=== PATIENT | female | born 1950 | race Hispanic/Latino ===

== ENCOUNTER 2018-07-30 05:44 | Observation (INO) | payer OTHER, MEDICARE ==
[2018-07-29 15:27] VITALS: BP 145/62
[2018-07-29 15:46] LABS: APPEARANCE,URINE Clear (CLEAR); BILIRUBIN,URINE Negative (NEGATIVE); COLOR,URINE Yellow (YELLOW); GLUCOSE, URINE (UA) Negative (NEGATIVE); KETONES,URINE Negative (NEGATIVE); LEUKOCYTE ESTERASE ,URINE Negative (NEGATIVE); NITRATE,URINE Negative (NEGATIVE); OCCULT BLOOD,URINE Negative (NEGATIVE); PROTEIN,URINE Negative (NEGATIVE)
[2018-07-29 15:59] LABS: INR 1.09 (0.85-1.15); PARTIAL THROMBOPLASTIN TIME 26.4 SEC (26.3-35.5); PROTHROMBIN TIME 11.4 SEC (9.6-11.6)
[2018-07-30] VITALS (23 sets, daily range): BP systolic 118–171; BP diastolic 66–87
[~2018-07-30] VITALS: Ht 170.2 cm; Wt 90.7 kg
[~2018-07-30 05:44] MED LIST: BUSP15TA3 PO; CARV6.25 PO; DULO60CA63 PO; GABA-531 PO; HYDR25TA PO; IBUP-2077 PO; INSU100I13 SQ; INSU100I21 SQ; LEVO125T11 PO; LOSA50TA25 PO; METF-446 PO; MONT10TA21 PO; PRAV80TA21 PO
[2018-07-30] MEDS ORDERED: PROPOFOL 10 MG/ML 20ML VIAL IV ONE (07:35)
[2018-07-30] MEDS ORDERED: LIDOCAINE PF 2% 5ML ABBOJECT ONE (07:35)
[2018-07-30] MEDS ORDERED: FENTANYL CITRATE PF 50 MCG/1 ML 2ML VIAL ONE (07:36)
[2018-07-30] MEDS ORDERED: MIDAZOLAM HCL 1 MG/ML 2ML VIAL ONE (07:36)
[2018-07-30] MEDS ORDERED: ROPIVACAINE 0.5% 5MG/ML 30ML IJ ONE (07:37)
[2018-07-30] MEDS ORDERED: SODIUM CHLORIDE 0.9% 1000ML 1,000 ML IV ONE (07:42)
[2018-07-30] MEDS ORDERED: DEXAMETHASONE SOD PHOSPHATE 10MG/ML 1ML VIAL ONE (07:45)
[2018-07-30] MEDS ORDERED: ONDANSETRON HCL 4 MG/2 ML VIAL ONE (07:45)
[2018-07-30] MEDS ORDERED: KETAMINE HCL 100 MG/ML 5ML VIAL IJ ONE (07:54)
[2018-07-30] MEDS ORDERED: HYDROMORPHONE 1 MG/1 ML AMP ONE ×2 (07:56→12:05)
[2018-07-30] MEDS ORDERED: CELE-84 PO (07:57)
[2018-07-30] MEDS: CEFAZOLIN SODIUM 1 GM VIAL IVP ONE ×2 (07:58→08:45)
[2018-07-30] MEDS ORDERED: BUPIVACAINE/EPI/PF 0.5% 30ML VIAL IJ ONE (08:49)
[2018-07-30] MEDS: TRANEXAMIC ACID 1000MG/10ML IV ONE ×2 (08:50→11:15)
[2018-07-30] MEDS ORDERED: GLYCOPYRROLATE 1 MG/5 ML SYRINGE ONE (08:56)
[2018-07-30] MEDS ORDERED: EPHEDRINE SULFATE 50 MG/ML AMPULE ONE ×2 (08:58→09:24)
[2018-07-30] MEDS ORDERED: CEFAZOLIN SODIUM 1 GM VIAL ONE (09:31)
[2018-07-30] MEDS ORDERED: METOPROLOL TARTRATE 1 MG/ML 5ML VIAL IV ONE (09:44)
[2018-07-30] MEDS ORDERED: LIDOCAINE HCL-MPF 1% 2ML VIAL IVP PRN (10:45)
[2018-07-30] MEDS ORDERED: DiphenhydrAMINE HCL 50 MG/ML VIAL IVP PRN (10:45)
[2018-07-30] MEDS ORDERED: POTASSIUM CHLORIDE 20 MEQ ERTAB PO PRN (10:45)
[2018-07-30] MEDS: ACETAMINOPHEN EXTRA STRENGTH 500 MG TABLET PO SCH ×2 (10:45→19:19)
[2018-07-30] MEDS ORDERED: POTASSIUM CHLORIDE 20MEQ/100ML 100 ML IV PRN (10:45)
[2018-07-30] MEDS ORDERED: CALCIUM CARBONATE 500 MG TABLET PO PRN (10:45)
[2018-07-30] MEDS ORDERED: TEMAZEPAM 15 MG CAPSULE PO PRN (10:45)
[2018-07-30] MEDS ORDERED: ONDANSETRON HCL 4 MG/2 ML VIAL IVP PRN (10:45)
[2018-07-30] MEDS ORDERED: POTASSIUM CHLORIDE 10% ELIXIR 20 MEQ/15 ML UDCUP PO PRN (10:45)
[2018-07-30] MEDS ORDERED: FERROUS FUMARATE 324 MG TABLET PO PRN (10:45)
[2018-07-30] MEDS ORDERED: TRAMADOL HCL 50 MG TABLET PO PRN (10:45)
[2018-07-30] MEDS ORDERED: OXYCODONE HCL 5 MG TAB PO PRN ×2 (10:45)
[2018-07-30] MEDS: SODIUM CHLORIDE 0.9% 1000ML 1,000 ML IV SCH ×3 (11:11→20:45)
[2018-07-30] MEDS ORDERED: MORPHINE SULFATE 2 MG/ML 1ML SYG ONE ×2 (11:27→11:43)
[2018-07-30] MEDS: INSULIN HUMULIN R 100 UNIT/ML 3ML SQ SCH ×3 (11:30→21:04)
[2018-07-30] MEDS: CEFAZOLIN SODIUM 1 GM VIAL IVP SCH (15:17)
[2018-07-30] MEDS: KETOROLAC TROMETHAMINE 15MG/ML IV PRN (15:17)
[2018-07-30] MEDS ORDERED: INSULIN GLARGINE 100 UNITS/ML 10 ML VIAL SQ SCH (19:00)
[2018-07-30] MEDS ORDERED: INSULIN HUMULIN 70/30 100 UNIT/ML 3ML SQ SCH (19:00)
[2018-07-30] MEDS: ASPIRIN 325 MG TABLET PO SCH (20:44)
[2018-07-30] MEDS: GABAPENTIN 300 MG CAPSULE PO SCH (20:44)
[2018-07-30] MEDS: CELECOXIB 200 MG CAP PO SCH (20:44)
[2018-07-30] MEDS: BUSPIRONE HCL 5 MG TABLET PO SCH (20:44)
[2018-07-30] MEDS: FAMOTIDINE 20MG TAB 20 MG TAB PO SCH (20:44)
[2018-07-30] MEDS: CARVEDILOL 6.25 MG TABLET PO SCH (20:45)
[2018-07-30] MEDS: METFORMIN HCL 500 MG TABLET PO SCH (20:53)
[2018-07-30] MEDS ORDERED: MONTELUKAST SODIUM 10 MG TAB PO SCH (21:00)
[2018-07-30] MEDS ORDERED: ATORVASTATIN CALCIUM 20 MG TABLET PO SCH (21:00)
[2018-07-31 00:04] VITALS: BP 101/58
[2018-07-31] MEDS ORDERED: CEFAZOLIN SODIUM 1 GM VIAL ONE (00:52)
[2018-07-31] MEDS: CEFAZOLIN SODIUM 1 GM VIAL IVP SCH (00:54)
[2018-07-31] MEDS: ACETAMINOPHEN EXTRA STRENGTH 500 MG TABLET PO SCH ×3 (02:15→18:09)
[2018-07-31] MEDS: KETOROLAC TROMETHAMINE 15MG/ML IV PRN ×3 (03:07→15:17)
[2018-07-31 04:02] LABS: HEMATOCRIT 34.2 % (36-48); MEAN CORPUSCULAR HEMOGLOBIN 31.6 pg (27.0-33.0); MEAN CORPUSCULAR HGB CONC 34.1 g/dL (32.0-36.0); MEAN CORPUSCULAR VOLUME 92.8 fL (79-99); PLATELET COUNT (AUTO) 229 K/uL (130-400); RED BLOOD CELL COUNT(AUTO) 3.68 MIL/uL (4.00-5.50); RED CELL DISTRIBUTION WIDTH 13.1 % (11.0-15.5)
[2018-07-31 04:10] LABS: POTASSIUM 3.9 mmol/L (3.5-5.1)
[2018-07-31 04:44] VITALS: BP 120/59
[2018-07-31] MEDS: INSULIN HUMULIN R 100 UNIT/ML 3ML SQ SCH ×3 (06:06→17:18)
[2018-07-31] MEDS: SODIUM CHLORIDE 0.9% 1000ML 1,000 ML IV SCH (06:06)
[2018-07-31] MEDS ORDERED: LEVOTHYROXINE 125 MCG TABLET PO SCH (06:30)
[2018-07-31 07:56] VITALS: BP 131/58
[2018-07-31] MEDS: METFORMIN HCL 500 MG TABLET PO SCH ×2 (08:43→17:18)
[2018-07-31] MEDS: ASPIRIN 325 MG TABLET PO SCH (08:43)
[2018-07-31] MEDS: BUSPIRONE HCL 5 MG TABLET PO SCH (08:43)
[2018-07-31] MEDS: CELECOXIB 200 MG CAP PO SCH (08:45)
[2018-07-31] MEDS: FAMOTIDINE 20MG TAB 20 MG TAB PO SCH (08:45)
[2018-07-31] MEDS: GABAPENTIN 300 MG CAPSULE PO SCH (08:45)
[2018-07-31] MEDS: CARVEDILOL 6.25 MG TABLET PO SCH (08:46)
[2018-07-31] MEDS ORDERED: DULOXETINE HCL 30 MG CAP PO SCH (09:00)
[2018-07-31] MEDS ORDERED: POLYETHYLENE GLYCOL 3350 17 GM POWD.PACK PO SCH (09:00)
[2018-07-31] MEDS ORDERED: HYDROCHLOROTHIAZIDE 25 MG TABLET PO SCH (09:00)
[2018-07-31] MEDS ORDERED: LOSARTAN 50 MG TABLET PO SCH (09:00)
[2018-07-31 11:00] VITALS: BP 148/67
[2018-07-31 16:00] VITALS: BP 133/66
[2018-07-31] MEDS ORDERED: CELE200 PO (18:57)
[2018-07-31] MEDS ORDERED: ASPI-1012 PO (18:57)
[2018-08-02] MEDS ORDERED: BISACODYL 10 MG SUPP.RECT RC PRN (10:45)
== END 2018-07-31 20:45 | disposition home health service (06) ==
LOC: DAH 05:44 → 4BH 05:45 → DAH 05:45
PROVIDERS: ADMIT Orthopaedic Surgery; ATTEND Orthopaedic Surgery
DX: M17.11 Unilateral primary osteoarthritis, right knee (principal); I10 Essential (primary) hypertension; E11.9 Type 2 diabetes mellitus without complications; E78.5 Hyperlipidemia, unspecified; E03.9 Hypothyroidism, unspecified; E66.3 Overweight; G89.29 Other chronic pain
CPT/HCPCS: 27447; 36415 ×2; 80048; 81003; 82948 ×8; 85027; 85610; 85730; 88305; 88311; 93005; 96372 ×2; 96374; 96375; 96376; 97116 ×3; 97161; 97530 ×2; A4215; A4649 ×5; A4930 ×3; A9272; C1763; C1776; G0378 ×39; G8978; G8979; G8980; G8981; G8982; G8983; J0690 ×4; J1100; J1170 ×2; J1815 ×4; J1885 ×4; J2001; J2250; J2405; J2704; J2795; J3010; J3490 ×6; J7030 ×3

== ENCOUNTER → 2020-06-17 | Outpatient (CLI) | payer OTHER, MEDICARE ==
[~2020-06-17] MED LIST changes: +ASPI-1012 PO; +CELE200 PO; -DULO60CA63 PO; +DULO60CA64 PO; -IBUP-2077 PO; -LOSA50TA25 PO; +LOSA50TA64 PO
== END ==
LOC: RAH 10:00
PROVIDERS: ATTEND Family Medicine
DX: Z12.31 Encounter for screening mammogram for malignant neoplasm of breast (principal)
CPT/HCPCS: 77067